=== PATIENT | female | born 1985 | race Caucasian/White ===

== ENCOUNTER 2019-08-26 10:36 | Emergency (ER) | payer SELFPAY ==
[~2019-08-26] VITALS: Ht 149.9 cm; Wt 86.2 kg
[2019-08-26 10:39] VITALS: BP 122/72
--- NOTE | 2019-08-26 10:54 | NUR ---
34/F TO ED C/O SORE THROAT AND COLD S/S X 2 WEEKS WELL C/O DRY, CRACKED, PEELING SKIN TO L FOOT X 1 MONTH. REPORTS PRODUCTIVE COUGH, LUNG SOUNDS CLEAR BILATERALLY. NO DISTRESS NOTED. IN BED FOR MSE.
--- NOTE | 2019-08-26 11:59 | NUR ---
Patient discharged with v/s stable. Written and verbal after care instructions given and explained. Patient alert, oriented and verbalized understanding of instructions. Ambulatory with steady gait. All questions addressed prior to discharge. ID band removed. Patient advised to follow up with PMD. Rx of MOTRIN, PROMETHAZINE/DEXTROMETHORPHAN given. Patient educated on indication of medication including possible reaction and side effects. Opportunity to ask questions provided and answered.
[2019-08-26 12:00] VITALS: BP 122/72
== END 2019-08-26 11:59 | disposition home or self-care (01) ==
LOC: MED 10:36
DX: R50.9 Fever, unspecified (principal)
CPT/HCPCS: 99283